=== PATIENT | male | born 1940 | race Caucasian/White ===

== ENCOUNTER 2024-07-18 21:20 | Inpatient (IN) ==
[2024-07-18 21:58] LABS: ABS Basophils 0.1 10^3/uL (0.0-0.1); ABS Eosinophils 0.1 10^3/uL (0.0-0.5); ABS Lymphocytes 2.2 10^3/uL (1.0-4.8); ABS Monocytes 1.1 10^3/uL (0.0-1.1); ABS Neutrophils 5.6 10^3/uL (1.5-7.6); ABS Nucleated RBC 0.01 10^3/ul; Eosinophil % 0.8 %; Hematocrit 30.5 % (38-53); Hemoglobin 9.9 g/dL (13.2-16.3); Lymphocyte % 23.8 %; Mean Corpuscular Hemoglobin 30.7 pg (27-33); Mean Corpuscular Hgb Conc 32.5 g/dL (31-36); Mean Corpuscular Volume 94.3 fL (80-97); Mean Platelet Volume 8.4 fL (7.5-11.2); Nucleated Red Blood Cells % 0.1 %/100WBC (0.0-0.8); Platelet Count 211 10^3/uL (150-450); Red Blood Count 3.23 10^6/uL (4.06-5.63); Red Cell Distribution Width 17.3 % (12-17); White Blood Count 9.1 10^3/uL (3.6-10.2)
[2024-07-18 22:45] LABS: Albumin 3.7 g/dL (3.5-5.7); Albumin/Globulin Ratio 1.2 (1-3); Calcium 8.9 mg/dL (8.6-10.3); Creatinine, Serum 2.25 mg/dL (0.67-1.17); Globulin 3.1 g/dL (2-4); Potassium 4.9 mmol/L (3.5-5.0); Total Bilirubin 1.3 mg/dL (0.2-1.0); Total Protein 6.8 g/dL (6.4-8.9); eGFR CKD-EPI 27.7 (>60)
[2024-07-18 23:13] LABS: Magnesium 2.1 mg/dL (1.9-2.7)
[2024-07-18 23:17] LABS: High Sensitivity Troponin 1 Hr 491 pg/mL (<20)
[2024-07-19 01:22] LABS: PCO2 Arterial 37 mmHg (35-45); PO2 Arterial 215 mmHg (80-100)
[2024-07-19 01:24] LABS: ABS Basophils 0.1 10^3/uL (0.0-0.1); ABS Eosinophils 0.1 10^3/uL (0.0-0.5); ABS Lymphocytes 2.2 10^3/uL (1.0-4.8); ABS Monocytes 1.4 10^3/uL (0.0-1.1); ABS Neutrophils 7.8 10^3/uL (1.5-7.6); ABS Nucleated RBC 0.03 10^3/ul; Eosinophil % 0.9 %; Hematocrit 29.2 % (38-53); Hemoglobin 9.8 g/dL (13.2-16.3); Lymphocyte % 19.3 %; Mean Corpuscular Hemoglobin 31.2 pg (27-33); Mean Corpuscular Hgb Conc 33.5 g/dL (31-36); Mean Corpuscular Volume 93.1 fL (80-97); Mean Platelet Volume 8.6 fL (7.5-11.2); Nucleated Red Blood Cells % 0.3 %/100WBC (0.0-0.8); Platelet Count 210 10^3/uL (150-450); Red Blood Count 3.13 10^6/uL (4.06-5.63); Red Cell Distribution Width 16.6 % (12-17); White Blood Count 11.6 10^3/uL (3.6-10.2)
[2024-07-19] MEDS: Propofol 10 mg/ml 100 ML BTL 1,000 MG/100 ML BTL ONE (01:31)
[2024-07-19] MEDS: Rocuronium 50 mg VIAL 10 mg/ml 5 ml VIAL (50 mg) ONE (01:31)
[2024-07-19 01:34] LABS: Activated Partial Thrombo Time 28.4 seconds (26.0-38.0); INR 1.71 (0.85-1.14)
[2024-07-19] MEDS: DOBUTamine 2000 MCG/ML IVPREMX 500 MG/250 ML BAG IV SCH (01:58)
[2024-07-19] MEDS: Pantoprazole VIAL 40 MG VIAL IV SCH (02:08)
[2024-07-19 02:15] LABS: Creatinine, Serum 2.44 mg/dL (0.67-1.17); Potassium 5.4 mmol/L (3.5-5.0)
[2024-07-19] MEDS: Norepinephrine 4 MG/250mL D5W 4,000 MCG/250 ML BAG IV ONE (02:15)
[2024-07-19 02:16] LABS: Albumin 3.5 g/dL (3.5-5.7); Albumin/Globulin Ratio 1.2 (1-3); Calcium 8.7 mg/dL (8.6-10.3); Globulin 2.9 g/dL (2-4); Magnesium 2.2 mg/dL (1.9-2.7); Total Bilirubin 1.2 mg/dL (0.2-1.0); Total Protein 6.4 g/dL (6.4-8.9); eGFR CKD-EPI 25.1 (>60)
[2024-07-19] MEDS: Furosemide 40 mg/4 ml IV VIAL IV SLOW PU ONE ×2 (02:28→04:57)
[2024-07-19] MEDS: Norepinephrine *QUAD STRENGTH* 16 mg/250 mL NS PREMIX (ICU ONLY) IV SCH (02:38)
[2024-07-19 02:58] LABS: High Sensitivity Troponin 1 Hr 623 pg/mL (<20)
[2024-07-19] MEDS: Chlorhexidine MOUTHWASH 0.12% 15 ML UDC TOPICAL SCH (03:21)
[2024-07-19] MEDS: Heparin 5000 UNITS/ML 1 mL VIAL IV SCH (03:49)
[2024-07-19] MEDS: Heparin DRIP 25,000 UNITS BAG 25,000 UNITS/250 ML BAG IV SCH (03:51)
[2024-07-19] MEDS: fentaNYL INFUSION 50 mcg/mL VL 2,500 MCG/50 ML VIAL IV SCH ×2 (03:56→16:23)
[2024-07-19] MEDS ORDERED: Dextrose 50% Syringe 50 ml 25 GM/50 ML SYRINGE IV PUSH PRN (04:25)
[2024-07-19] MEDS ORDERED: Sulfur Hexaflouride MICROSPHR 25 MG VIAL IV PRN (04:59)
[2024-07-19] MEDS: SODIUM ZIRCONIUM CYCLOSILICATE 10 GM PACKET PO ONE (05:01)
[2024-07-19] MEDS: Levothyroxine 100 MCG/5 ML VIAL IV SCH (05:19)
[2024-07-19 06:25] LABS: ABS Basophils 0.1 10^3/uL (0.0-0.1); ABS Lymphocytes 1.7 10^3/uL (1.0-4.8); ABS Monocytes 1.2 10^3/uL (0.0-1.1); ABS Neutrophils 7.4 10^3/uL (1.5-7.6); ABS Nucleated RBC 0.01 10^3/ul; Eosinophil % 0.4 %; Hematocrit 26.5 % (38-53); Hemoglobin 9.1 g/dL (13.2-16.3); Lymphocyte % 16.6 %; Mean Corpuscular Hemoglobin 31.7 pg (27-33); Mean Corpuscular Hgb Conc 34.5 g/dL (31-36); Mean Platelet Volume 8.4 fL (7.5-11.2); Nucleated Red Blood Cells % 0.1 %/100WBC (0.0-0.8); Platelet Count 181 10^3/uL (150-450); Red Blood Count 2.88 10^6/uL (4.06-5.63); Red Cell Distribution Width 16.8 % (12-17); White Blood Count 10.4 10^3/uL (3.6-10.2)
[2024-07-19 07:31] LABS: Albumin 3.1 g/dL (3.5-5.7); Albumin/Globulin Ratio 1.2 (1-3); Creatinine, Serum 2.32 mg/dL (0.67-1.17); Globulin 2.5 g/dL (2-4); HDL Cholesterol 24.8 mg/dL; Magnesium 2.1 mg/dL (1.9-2.7); Potassium 4.5 mmol/L (3.5-5.0); TSH Ultra Thyroid Stim Horm 0.74 mcIU/mL (0.34-5.60); Total Bilirubin 1.1 mg/dL (0.2-1.0); Total Protein 5.6 g/dL (6.4-8.9); eGFR CKD-EPI 26.7 (>60)
[2024-07-19 08:54] LABS: Magnesium 2.2 mg/dL (1.9-2.7); Potassium 4.4 mmol/L (3.5-5.0)
[2024-07-19 11:38] VITALS: BP 84/49
[2024-07-19] MEDS: Midazolam 2 mg/2 ml VIAL 1 mg/ml 2 ml VIAL (2 mg) IV SLOW PU PRN (13:24)
[2024-07-19] MEDS: Midazolam PREMIXBAG 1 MG/ML NS 100 ML IV SCH (16:14)
[2024-07-19] MEDS: fentaNYL 100 mcg/2 ml 50 MCG/ML VIAL IV SLOW PU SCH (16:14)
== END 2024-07-19 17:21 | disposition expired ==
LOC: EDHOLD 21:20 → ED 21:20 → MEDTELE 22:44 → ICU 23:54
PROVIDERS: ADMIT Internal Medicine; ATTEND Student in an Organized Health Care Education/Training Program